=== PATIENT | female | born 1995 | race Caucasian/White ===

== ENCOUNTER 2021-06-17 07:20 | Emergency (ER) | payer SELFPAY ==
--- NOTE | 2021-06-17 07:30 | NUR ---
PT CALLED IN LOBBY, NO ANSWER. MADE AWARE.
--- NOTE | 2021-06-17 07:37 | NUR ---
PT CALLED IN LOBBY SECOND TIME, NO ANSWER. MADE AWARE. Addendum: 06/17/21 at 0737 by [facility] PT [place], NO ANSWER. MADE AWARE. VOICEMAIL LEFT.
== END 2021-06-17 07:40 | disposition left against medical advice (07) ==
LOC: MED 07:20
DX: R52 Pain, unspecified (principal); Z53.21 Procedure and treatment not carried out due to patient leaving prior to being seen by health care provider